=== PATIENT | male | born 1955 | race Caucasian/White ===

== ENCOUNTER 2020-06-04 09:50 | Outpatient (REF) | payer BC, SELFPAY | END 2020-06-04 09:51 | disposition home or self-care (01) | LOC: HO.LAB 09:50 | PROVIDERS: PCP Internal Medicine; Visit Provider Internal Medicine | DX: Z20.822 Contact with and (suspected) exposure to COVID-19 (principal) | CPT/HCPCS: 36415; C9803; U0003 ==

== ENCOUNTER 2020-06-27 12:24 | Outpatient (REF) | payer BC, SELFPAY | END 2020-06-27 12:25 | disposition home or self-care (01) | LOC: HO.LAB 12:24 | PROVIDERS: Visit Provider Internal Medicine | DX: Z20.822 Contact with and (suspected) exposure to COVID-19 (principal) | CPT/HCPCS: 36415; C9803; U0003; U0005 ==

== ENCOUNTER 2020-10-16 08:50 | Day surgery (SDC) | payer BC, SELFPAY ==
[2020-10-09 18:54] VITALS: BMI 30.9
--- NOTE | 2020-10-15 08:46 | P.CONAN_ITS ---
Documented by User: Fany Briones 10/15/20 08:48 HPI - Anesthesia Eval Consult details Narrative: 64yo M for Colonoscopy [facility] Past Medical History Medical History Elevated cholesterol Hypertension Surgical History Surgical History History of colonoscopy S/P left knee arthroscopy (~1991) [place] teeth extracted Social History Social History Smoking Status: Never smoker Second Hand Smoke Exposure: No Use of substances other than those prescribed or required for medical reasons: No Are you DNR?: No Advance Directives: No Advance Directives Information Provided: No Advance Directives on File: No Recently lost weight without trying: No Meds Allergies Allergy/AdvReac Type Severity Reaction Status Date / Time ENVIROMENTAL Allergy Unknown SINUS Uncoded 02/09/20 15:15 IRRITATION Home Medications Medication Instructions Recorded Confirmed Last Taken Type aspirin [Aspir-81] 81 mg PO DAILY 10/09/20 10/09/20 Unknown History atorvastatin 40 mg PO DAILY 10/09/20 10/09/20 Unknown History famciclovir 1 tab PO BID 10/09/20 10/09/20 Unknown History hydrochlorothiazide 25 mg PO DAILY 10/09/20 10/09/20 Unknown History lisinopril 40 mg PO DAILY 10/09/20 10/09/20 Unknown History metoprolol succinate 100 mg PO DAILY 10/09/20 10/09/20 Unknown History multivitamin 1 tab PO DAILY 10/09/20 10/09/20 Unknown History Exam Exam Date and Time: October 15, 2020 0846 Height,Weight and Vital Signs: Height 6 ft 1 in Weight 106.594 kg Assessment and Plan Assessment Anesthesia Assessment: Chart Reviewed Documented by User: Lizette Fan 10/16/20 09:32 [facility] Past Medical History Medical History Elevated cholesterol Hypertension Family History Family history of problems with anesthesia: No Surgical History Surgical History History of colonoscopy S/P left knee arthroscopy (~1991) [place] teeth extracted History of Problems with Anesthesia: No Social History Social History Smoking Status: Never smoker Second Hand Smoke Exposure: No Use of substances other than those prescribed or required for medical reasons: No Are you DNR?: No Advance Directives: No Advance Directives Information Provided: No Advance Directives on File: No Recently lost weight without trying: No Meds Allergies Allergy/AdvReac Type Severity Reaction Status Date / Time ENVIROMENTAL Allergy Unknown SINUS Uncoded 02/09/20 15:15 IRRITATION Home Medications Medication Instructions Recorded Confirmed Last Taken Type aspirin [Aspir-81] 81 mg PO DAILY 10/09/20 10/09/20 Unknown History atorvastatin 40 mg PO DAILY 10/09/20 10/09/20 Unknown History famciclovir 1 tab PO BID 10/09/20 10/09/20 Unknown History hydrochlorothiazide 25 mg PO DAILY 10/09/20 10/09/20 Unknown History lisinopril 40 mg PO DAILY 10/09/20 10/09/20 Unknown History metoprolol succinate 100 mg PO DAILY 10/09/20 10/09/20 Unknown History multivitamin 1 tab PO DAILY 10/09/20 10/09/20 Unknown History Exam Height,Weight and Vital Signs: Vital Signs Temp Pulse Resp BP Pulse Ox 10/16/20 09:10 96.5 F L 61 16 153/85 H 95 Airway Mallampati Class: III TM Dist: >3cm Neck ROM: Full Heart: RRR Lungs: CTAB Assessment and Plan Assessment Anesthesia Assessment: Anesthesia Plan Discussed and Chart Reviewed Final Anesthetic Review NPO: Yes ASA Class: II Final Preanesthetic Review: No Changes in Pt Med Stat, Meds/Allgs Chart Reviewed, Consent Obtained/Reviewed and Anes Risks/Benef Reviewed Patient Risk: Low Procedure Risk: Low Assessment/Block/Sedation in SS: Assess/Block/Sedation-SS Anesthetic Plan Anesthetic Plan: MAC: Disposition: Standard PACU
[2020-10-16 09:10] VITALS: BP 153/85; PULSE 61; RESP 16; TEMP 35.8; O2SAT 95
[2020-10-16] MEDS: Lactated Ringers 1,000 ML 100 ML IVCONT (09:16)
--- NOTE | 2020-10-16 09:43 | P.HPSUR_ITS ---
Pre-Procedural Eval Section A The patient is an INPATIENT: No Section B Chief Complaint: screening Details of Present Illness: screening Relevant Family History (Specify if Yes): No Relevant Social History: None Present Medications: see Short Stay Collaborative assessment Medical History: No relevant PMH History of Previous Operations: No relevant previous surgery Allergies: Allergies Allergy/AdvReac Type Severity Reaction Status Date / Time ENVIROMENTAL Allergy Unknown SINUS Uncoded 02/09/20 15:15 IRRITATION Review of Systems Sugical H&P ROS: Negative: Constitution, Cardiovascular, Respiratory, Elle rological, Psychiatric, Hem-Onc, Allergic/Immunologic, Gastrointestinal, Genitourinary, Musculoskeletal, Integumentary, Endocrine and Eyes/Ears/Nose/Throat Exam Surgical H&P Exam: Normal: HEENT, Normal: Heart, Normal: Lungs, Normal: Extremities, Normal: Abdomen, Normal: Skin and Normal: Neurological Plan I have reviewed the history and physical and performed a pertinent physical examination on my patient. No changes have occurred unless specified.
--- NOTE | 2020-10-16 10:11 | P.BOP_ITS ---
Brief Operative Note Date of Service: 10/16/20 Pre-op diagnosis: screening Post-op diagnosis: same (colon polyps) Procedure: colonoscopy Surgeon: Mat Hinds Anesthesia: MAC Was an Bending Roll Operator used for this Procedure?: No Estimated blood loss (mL): 0 Pathology: other (polyps x2 25 cm) Condition: stable Disposition: PACU
[2020-10-16 10:14] VITALS: BP 112/70; PULSE 69; RESP 14; TEMP 36.1; O2SAT 95
[2020-10-16 10:29] VITALS: BP 127/79; PULSE 64; RESP 17; TEMP 36.1; O2SAT 97
--- NOTE | 2020-10-16 13:48 | OP_ITS ---
SURGEON: Mat Hinds MD INDICATIONS: Colon cancer screening. PREOPERATIVE DIAGNOSIS: POSTOPERATIVE DIAGNOSIS: PROCEDURE PERFORMED: Colonoscopy to the terminal ileum with snare polypectomy. ESTIMATED BLOOD LOSS: COMPLICATIONS: ANESTHESIA: ASSISTANTS: SPECIMENS: MEDICATIONS: Monitored anesthesia care. DESCRIPTION OF PROCEDURE: History and physical performed. The risks and benefits of the procedure were explained to the patient. Informed consent was obtained. The patient was placed in the left lateral decubitus position. A digital rectal exam was performed and was found to be normal. The Olympus pediatric video colonoscope was introduced into the rectum and advanced to the cecum without difficulty. The cecum was identified by transillumination, palpation, and identification of ileocecal valve. Examination was performed and the scope was removed. He tolerated the procedure well and was taken to recovery area in stable condition. FINDINGS: The terminal ileum was examined and appeared normal. The visualized colonic mucosa was within normal limits without evidence of masses or ulcers. At 25 cm, were 2 polyps, 1 measuring approximately 10 mm and the second measuring approximately 6 mm. Both were removed with a snare and recovered via suction. No other polyps were identified. There was mild sigmoid diverticulosis. Retroflexed examination showed moderate-sized internal hemorrhoids. IMPRESSION: Colon polyps. RECOMMENDATION: Follow up the biopsy results. MD JEREMY Katz/DAVIE / [id number]
== END 2020-10-16 11:14 | disposition home or self-care (01) ==
PROVIDERS: Visit Provider Internal Medicine Gastroenterology
PROC: 0DJD8ZZ Inspection of Lower Intestinal Tract, Via Natural or Artificial Opening Endoscopic (ICD-10-PCS; CPT 45378; principal; 2020-10-16 10:10)
DX: Z12.11 Encounter for screening for malignant neoplasm of colon (principal); D12.5 Benign neoplasm of sigmoid colon; K59.4 Anal spasm; I10 Essential (primary) hypertension; E78.00 Pure hypercholesterolemia, unspecified; Z79.82 Long term (current) use of aspirin; Z79.899 Other long term (current) drug therapy
CPT/HCPCS: 45385; 88305